=== PATIENT | female | born 1955 | race Two or more races ===

== ENCOUNTER 2020-09-09 07:40 | Outpatient (CLI) | payer OTHER | END 2020-09-09 07:45 | disposition home or self-care (01) | LOC: SONOGRAMA 07:40 | PROVIDERS: ATTEND Pathology Anatomic Pathology & Clinical Pathology | DX: D34 Benign neoplasm of thyroid gland (principal); E04.2 Nontoxic multinodular goiter ==

== ENCOUNTER 2021-03-17 08:03 | Outpatient (CLI) | payer OTHER | END 2021-03-17 11:02 | disposition home or self-care (01) | LOC: SONOGRAMA 08:03 | PROVIDERS: ATTEND Pathology Anatomic Pathology & Clinical Pathology | DX: D34 Benign neoplasm of thyroid gland (principal); E04.8 Other specified nontoxic goiter ==

== ENCOUNTER 2022-03-30 08:07 | Outpatient (CLI) | payer OTHER | END 2022-03-30 08:09 | disposition home or self-care (01) | LOC: SONOGRAMA 08:07 | PROVIDERS: ATTEND Pathology Anatomic Pathology & Clinical Pathology | DX: E04.1 Nontoxic single thyroid nodule (principal) ==